=== PATIENT | female | born 1995 | race African-American/Black ===

== ENCOUNTER 2020-03-08 01:40 | Emergency (ER) | payer MEDICAID ==
[~2020-03-08] VITALS: Ht 162.6 cm; Wt 56.0 kg
[2020-03-08] MEDS ORDERED: ONDANSETRON 4MG ODT PO ONE (02:15)
[2020-03-08 02:50] LABS: BASOPHILS % 0.4 % (0.0-2.0); EOSINOPHILS % 0.2 % (0.0-5.0); HEMATOCRIT. 44.4 % (36.0-48.0); HEMOGLOBIN. 14.8 g/dL (12.0-16.0); LYMPHOCYTES % 19.4 % (20.0-50.0); MEAN CORPUSCULAR HEMOGLOBIN 27.9 pg (28.0-32.0); MEAN CORPUSCULAR VOLUME 83.4 fL (81.0-99.0); MEAN PLATELET VOLUME 7.9 fl (7.4-10.4); MONOCYTES % 3.5 % (2.0-8.0); NEUTROPHILS % 76.5 % (40.0-76.0); PLATELET 193 x1000/uL (130-400); RED BLOOD CELL COUNT 5.32 mill/uL (4.2-5.4); RED CELL DISTRIBUTION WIDTH 13.2 % (11.6-14.6)
[2020-03-08 02:57] LABS: CHLORIDE 104 mEq/L (98-107)
[2020-03-08 02:58] LABS: CLARITY URINE CLEAR (CLEAR); COLOR URINE YELLOW (YELLOW); KETONES URINE NEGATIVE (NEGATIVE); LEUKOCYTE ESTERASE URINE NEGATIVE (NEGATIVE); NITRITE URINE NEGATIVE (NEGATIVE); OCCULT BLOOD URINE NEGATIVE (NEGATIVE); PROTEIN URINE 1+ (NEGATIVE); UROBILINOGEN URINE 0.2 E.U./dL (0.2-1.0)
[2020-03-08 03:01] LABS: ETHANOL BLOOD 177 mg/dL
[2020-03-08 03:06] LABS: *AMPHETAMINES SCREEN URINE NEGATIVE (NEGATIVE)
[2020-03-08 03:07] LABS: *BARBITURATES SCREEN URINE NEGATIVE (NEGATIVE); *COCAINE SCREEN URINE NEGATIVE (NEGATIVE); METHADONE URINE SCREEN NEGATIVE (NEGATIVE); OPIATES URINE SCREEN NEGATIVE (NEGATIVE)
[2020-03-08 03:08] LABS: PHENCYCLIDINE URINE SCREEN NEGATIVE (NEGATIVE)
[2020-03-08 03:13] LABS: *BENZODIAZEPINES SCREEN URINE PRESUMTIVE POSITIVE (NEGATIVE); CANNABINOID URINE SCREEN PRESUMTIVE POSITIVE (NEGATIVE)
[2020-03-08 06:38] VITALS: BP 106/62
== END 2020-03-08 06:38 | disposition home or self-care (01) ==
LOC: EDBD 01:40 → ER 01:40
DX: F10.129 Alcohol abuse with intoxication, unspecified (principal); Y90.6 Blood alcohol level of 120-199 mg/100 ml; F12.10 Cannabis abuse, uncomplicated
CPT/HCPCS: 36415; 80053; 80305; 80320; 81003; 85025; 99283; Q0162; G0480

== ENCOUNTER 2021-11-09 04:28 | Emergency (ER) | payer MEDICAID ==
[~2021-11-09] VITALS: Ht 170.2 cm; Wt 73.0 kg
[2021-11-09] MEDS ORDERED: TETANUS, DIPHTHERIA, PERTUSSIS VAC/PF 0.5ML (>10YR OLD) IM ONE (05:15)
[2021-11-09] MEDS ORDERED: BACITRACIN ZINC OINT UDPKT TOP ONE (05:15)
[2021-11-09] MEDS ORDERED: LIDOCAINE HCL/EPINEPHRINE 1%-EPI 1:100,000 20 ML VIAL INFIL ONE (05:15)
[2021-11-09] MEDS ORDERED: LIDOCAINE HCL/EPINEPHRINE 1%-EPI 1:100,000 10 ML VIAL INFIL NR (05:45)
[2021-11-09 07:05] VITALS: BP 120/70
== END 2021-11-09 07:13 | disposition home or self-care (01) ==
LOC: ER 04:28
DX: S51.812A Laceration without foreign body of left forearm, initial encounter (principal); E11.9 Type 2 diabetes mellitus without complications; F12.10 Cannabis abuse, uncomplicated; Z98.890 Other specified postprocedural states; W26.0XXA Contact with knife, initial encounter; Y93.89 Activity, other specified; Y92.018 Other place in single-family (private) house as the place of occurrence of the external cause
CPT/HCPCS: 12004; 99283; Z7610; J3490